=== PATIENT | male | born 1985 | race Caucasian/White ===

== ENCOUNTER 2018-03-14 11:26 | Emergency (ER) | payer BC ==
[2018-03-14 12:06] LABS: Absolute Lymphocytes (CBC) 2.8 K/uL (0.7-4.9); Absolute Monocytes 0.6 K/uL (0.1-1.3); Absolute Neutrophil 6.2 K/uL (1.8-8.0); Basophils % 1.1 % (0-1.3); Hematocrit 43.6 % (39.6-49.0); Lymphocytes % 28.5 % (15.3-44.8); MCH 28.2 pg (27.0-35.0); MCV 82.3 fL (80-100); MPV 7.2 fL (7.6-11.3); Monocytes % 5.8 % (3.3-12.3)
--- NOTE | 2018-03-14 12:15 | RAD REPORT ---
EXAM DESCRIPTION: CT - Head Brain Wo Cont - 03/14/2018 12:00 pm CLINICAL HISTORY: Left-sided numbness of the face and arm COMPARISON: None. TECHNIQUE: Axial 5 mm thick images of the head were obtained without IV contrast. All CT scans are performed using dose optimization technique as appropriate and may include automated exposure control or mA/KV adjustment according to patient size. FINDINGS: No intracranial hemorrhage, mass, edema or shift of mid-line structures. No acute infarcti on changes seen. No abnormal extra-axial fluid collections. Ventricles are normal. Mastoid air cells and visualized portions of the paranasal sinuses are clear. No acute bony findings. IMPRESSION: Negative non-contrast CT head examination. If the patient has continued, unexplained neurologic symptoms, MR imaging could be utilized for strok e assessment.
[2018-03-14 12:27] LABS: BUN Blood Urea Nitrogen 17 mg/dL (7-18); Bicarbonate 29 mmol/L (21-32); CKMB Creatine Kinase MB < 1.0 ng/mL (0.3-3.6); Creatine Phosphokinase 138 U/L (39-308); Glucose Level 92 mg/dL (74-106); Magnesium 2.2 mg/dL (1.8-2.4); Potassium 3.9 mmol/L (3.5-5.1); Sodium Level 138 mmol/L (136-145)
--- NOTE | 2018-03-14 12:49 | RAD REPORT ---
EXAM DESCRIPTION: Janeth Single View03/14/2018 12:42 pm CLINICAL HISTORY: Chest pain COMPARISON: none FINDINGS: The lungs appear clear of acute infiltrate. The heart is normal size IMPRESSION: No acute abnormalities displayed
--- NOTE | 2018-03-14 14:54 | RAD REPORT ---
EXAM DESCRIPTION: MRI - Brain Wo Cont - 03/14/2018 2:38 pm CLINICAL HISTORY: Left-sided face and arm numbness, left eye blurred vision COMPARISON: CT head same date TECHNIQUE: Sagittal T1-weighted images were obtained along with axial PD, heavily T2-weighted and T2 -FLAIR images. Axial DWI and ADC mapping sequences were also obtained along with coronal heavily T2-w eighted images. FINDINGS: No intracranial hemorrhage, mass or acute infarction. There is no edema or shift of midlin e structures. No extra-axial fluid collections. Dozier-matter/white matter junction is preserved. Signa l voids are seen as a normal finding in the major intracranial vessels. No globe or orbital content abnormality. No sella or supra sella abnormality. Mastoid air cells and paranasal sinuses are clear. IMPRESSION: Negative non-contrast MRI of the Brain.
--- NOTE | 2018-03-14 16:28 | ER ---
Nurse's Notes [facility] Name: Xavi De Luna Age: 32 yrs Sex: Male : 1985 Arrival Date: 03/14/2018 Time: 11:29 Bed 7 Private MD: Raymond De La Torre Diagnosis: Chest pain, unspecified;Paresthesia of skin Presentation: 03/14 11:33 Presenting complaint: Patient states: Numbness to left side of chest that started last aj night at 2300. Patient reports left arm and left face numbness today at 1030. Reports symptoms are resolving but numbness to left side of face persists. No facial droop noted. Patient drove himself to ER and ambulated in with steady gait. Transition of care: patient was not received from another setting of care. Onset of symptoms was March 13, 2018 at 23:00. Risk Assessment: Do you want to hurt yourself or someone else? Patient reports no desire to harm self or others. Initial Sepsis Screen: Does the patient meet any 2 criteria? No. Patient's initial sepsis screen is negative. Does the patient have a suspected source of infection? No. Patient's initial sepsis screen is negative. Care prior to arrival: None. 11:33 Method Of Arrival: Wheelchair aj 11:33 Acuity: EDU 3 aj Triage Assessment: 11:35 General: Appears in no apparent distress. comfortable, Behavior is calm, cooperative, aj appropriate for age. Pain: Denies pain. Neuro: Level of Consciousness is awake, alert, obeys commands, Oriented to person, place, time, situation, Appropriate for age. Neuro: Reports numbness in left mandaen, left zygomatic area, left cheek, left mandible, left clavicle, anterior aspect of left upper chest, left breast and left arm. Cardiovascular: Capillary refill < 3 seconds in bilateral fingers Patient's skin is warm and dry. Cardiovascular: Denies chest pain. Respiratory: Airway is patent Respiratory effort is even, unlabored, Respiratory pattern is regular, symmetrical. Derm: Skin is intact, is healthy with good turgor, Skin is pink, warm \T\ dry. normal. Historical: - Allergies: 11:35 No Known Allergies; aj - Home Meds: 11:35 atorvastatin oral oral [Active]; Allopurinol Oral [Active]; aj - PMHx: 11:35 Hyperlipidemia; Gout; aj - PSHx: 11:35 None; aj - Immunization history:: Adult Immunizations up to date. - Social history:: Smoking status: Patient/guardian denies using tobacco. - Ebola Screening: : Patient negative for fever greater than or equal to 101.5 degrees Fahrenheit, and additional compatible Ebola Virus Disease symptoms Patient denies exposure to infectious person Patient denies travel to an Ebola-affected area in the 21 days before illness onset No symptoms or risks identified at this time. - Family history:: not pertinent. - Hospitalizations: : No recent hospitalization is reported. Screenin:45 Patient has been NPO before screening. The patient is alert, able to follow commands. ss The patient exhibits slurred or garbled speech. The patient is not exhibiting difficulty speaking. The patient does not exhibit difficulty understanding words. The patient is able to swallow own secretions with no drooling or need for suction. Patient tolerated one teaspoon of water. No drooling, immediate coughing, gurgling, or clearing of the throat was noted. The patient tolerated 90mL of water. No drooling, immediate coughing, gurgling, or clearing of the throat was noted. The patient passed the bedside swallow screening. Oral medications may be given as ordered. Contact Physician for further diet orders. 11:55 Abuse screen: Denies threats or abuse. Denies injuries from another. Nutritional ss screening: No deficits noted. Tuberculosis screening: Never had TB. Fall Risk None identified. Assessment: 11:40 General: Appears in no apparent distress. comfortable, Behavior is cooperative, ss anxious, Denies fever, feeling ill, fatigue, chills. Pain: Complains of pain in chest Pain does not radiate. Pain currently is 0 out of 10 on a pain scale. at worst was 5 out of 10 on a pain scale. Pain began Pt reports he woke up in the middle of the night at 11 pm stating that he felt weird in his chest that there was pressure. Neuro:. Neuro: Level of Consciousness is awake, alert, confused, Oriented to person, place, time, situation, Compliance Advisor are equal bilaterally Moves all extremities. Full function Gait is steady, Speech is normal, Facial symmetry appears normal, Pupils are PERRLA, Intact Reports numbness in L finger tips, has improved greatly since onset of symptoms Denies dizziness, headache. Cardiovascular: Capillary refill < 3 seconds is brisk in bilateral fingers. Respiratory: Respiratory effort is even, unlabored, Respiratory pattern is regular, symmetrical. GI: No signs and/or symptoms were reported involving the gastrointestinal system. Patient currently denies diarrhea, nausea, vomiting. : No signs and/or symptoms were reported regarding the genitourinary system. EENT: Nares are clear Throat is clear. Derm: Skin is intact, is healthy with good turgor, Skin is dry. 11:55 General: Pt in CT at this time. . ss 12:22 Reassessment: Patient appears in no apparent distress at this time. No changes from tw2 previously documented assessment. Patient and/or family updated on plan of care and expected duration. Pain level reassessed. Patient is alert, oriented x 3, equal unlabored respirations, skin warm/dry/pink. 13:30 Reassessment: Patient appears in no apparent distress at this time. No changes from tw2 previously documented assessment. Patient and/or family updated on plan of care and expected duration. Pain level reassessed. Patient is alert, oriented x 3, equal unlabored respirations, skin warm/dry/pink. 14:46 Reassessment: Patient appears in no apparent distress at this time. No changes from tw2 previously documented assessment. Patient and/or family updated on plan of care and expected duration. Pain level reassessed. Patient is alert, oriented x 3, equal unlabored respirations, skin warm/dry/pink. 15:25 General: Appears in no apparent distress. comfortable, well developed, Behavior is sv calm, cooperative, appropriate for age. Pain: Denies pain. Neuro: Level of Consciousness is awake, alert, obeys commands, Oriented to person, place, time, situation, Moves all extremities. Full function Speech is normal, Denies numbness. Respiratory: Respiratory effort is even, unlabored, Respiratory pattern is regular, symmetrical. Derm: Skin is pink, warm \T\ dry. 16:03 Reassessment: Patient appears in no apparent distress at this time. No changes from tw2 previously documented assessment. Patient and/or family updated on plan of care and expected duration. Pain level reassessed. Patient is alert, oriented x 3, equal unlabored respirations, skin warm/dry/pink. 16:48 Reassessment: Patient appears in no apparent distress at this time. No changes from tw2 previously documented assessment. Patient and/or family updated on plan of care and expected duration. Pain level reassessed. Patient is alert, oriented x 3, equal unlabored respirations, skin warm/dry/pink. Vital Signs: 11:35 BP 185 / 101; Pulse 65; Resp 17; Temp 98.3; Pulse Ox 100% on R/A; Weight 117.93 kg; aj Height 6 ft. 0 in. (182.88 cm); 11:45 Resp 16; Pain 0/10; ss 12:21 BP 121 / 80; Pulse 72; Resp 16; Pulse Ox 99% on R/A; tw2 13:30 BP 133 / 89; Pulse 61; Resp 17; Pulse Ox 99% on R/A; tw2 14:46 BP 125 / 75; Pulse 66; Resp 17; Pulse Ox 99% on R/A; tw2 15:29 BP 130 / 86; Pulse 66 MON; Resp 18; Pulse Ox 99% on R/A; sv 16:03 BP 131 / 73; Pulse 63; Resp 13; Pulse Ox 100% on R/A; tw2 16:48 BP 118 / 80; Pulse 70; Resp 17; Pulse Ox 99% on R/A; tw2 11:35 Body Mass Index 35.26 (117.93 kg, 182.88 cm) aj 15:29 Sinus Rhythm sv Marcella Coma Score: 11:40 Eye Response: spontaneous(4). Verbal Response: oriented(5). Motor Response: obeys ss commands(6). Total: 15. NIH Stroke Scale Scores: 11:45 NIHSS Score: 0 ss ED Course: 11:29 Patient arrived in ED. sb2 11:30 Raymond De La Torre DO is Private Physician. sb2 11:35 Triage completed. aj 11:35 Arm band placed on left wrist. Patient placed in an exam room. aj 11:39 Sarthak Hunter MD is Attending Physician. rn 11:45 cuff setter overlock on. Pulse ox on. NIBP on. ss 11:45 Inserted saline lock: 20 gauge in right antecubital area, using aseptic technique. ss Blood collected. Patient maintains SpO2 saturation greater than 95% on room air. 11:55 Patient has correct armband on for positive identification. Bed in low position. Call ss light in reach. 11:59 CT completed. Patient tolerated procedure well. Patient moved to CT via stretcher. sj Patient moved back from CT. 12:00 CT Head Brain wo Cont In Process Unspecified. EDMS 12:05 EKG done, by industrial hygiene technician. reviewed by Sarthak Hunter MD. at1 12:20 Fern Aceves, RN is Primary Nurse. tw2 12:39 X-ray completed. Portable x-ray completed in exam room. Patient tolerated procedure ml well. 12:43 XRAY Chest (1 view) In Process Unspecified. EDMS 13:55 Patient moved to MRI via wheelchair. em2 14:38 Brain Wo Cont MRI In Process Unspecified. EDMS 15:22 Primary Nurse role handed off by Fern cAeves, RN sv 15:22 Shayla Pelayo, RN is Primary Nurse. sv 15:28 Patient taken to ultrasound. via wheelchair. sv 15:30 Awaiting radiology results. sv 15:59 Carotid Artery Bilateral US In Process Unspecified. EDMS 16:49 No provider procedures requiring assistance completed. IV discontinued, intact, tw2 bleeding controlled, No redness/swelling at site. Pressure dressing applied. Administered Medications: No medications were administered Point of Care Testing: Blood Glucose: 11:45 Blood Glucose: 87 mg/dL; ss Ranges: Outcome: 16:27 Discharge ordered by . rn 16:49 Discharged to home ambulatory, with significant other. tw2 16:49 Condition: stable 16:49 Discharge instructions given to patient, significant other, Instructed on discharge instructions, follow up and referral plans. Demonstrated understanding of instructions, follow-up care. 16:50 Patient left the ED. tw2 NIH Stroke Scale - NIH Stroke Score Date: 03/14/2018 Time: 11:45 Total Score = 0 1a. Level of Consciousness (LOC) - 0(Alert) 1b. Level of Consciousness (LOC) (Year \T\ Age) - 0(Both) 1c. LOC Commands (Open \T\ Closes Eyes/Epic Analyst) - 0(Both) 2. Best Gaze (Lateral Gaze Paresis) - 0(Normal) 3. Visual Field Loss - 0(No visual loss) 4. Facial Palsy - 0(Normal) 5a. Left Arm: Motor (10-second hold) - 0(No drift) 5b. Right Arm: Motor (10-second hold) - 0(No drift) 6a. Left Leg: Motor (5-second hold - always test supine) - 0(No drift) 6b. Right Leg: Motor (5-second hold - always test supine) - 0(No drift) 7. Limb Ataxia (finger/nose \T\ heel/vale - test with eyes open) - 0(Absent) 8. Sensory Loss (pinprick arms/legs/face) - 0(Normal) 9. Best Language: Aphasia (description/naming/reading) - 0(No aphasia) 10. Dysarthria (speech clarity - read or repeat words) - 0(Normal) 11. Extinction and Inattention (visual/tactile/auditory/spatial/personal) - 0(No abnormality) Initials: Signatures: Dispatcher [employer] Shayla Duran RN Concepcion Lobo, RN BERTRAM Decker, Francesca Schaeffer, Sarthak Angela MD MD rn Smirch, Shelby, RN RN ss Montes, Enrique em2 Concepcion guaman, architectural job captain EKG Tat1 Fern Aceves RN RN tw2 Geovanna Cantu sb2
--- NOTE | 2018-03-14 16:28 | EDPHYS ---
Physician Documentation [facility] Name: Xavi De Luna Age: 32 yrs Sex: Male : 1985 Arrival Date: 03/14/2018 Time: 11:29 Bed 7 Private MD: Yasmine De La Torreh ED Physician Sarthak Hunter HPI: 03/14 12:02 This 32 yrs old Male presents to ER via Wheelchair with complaints of Chest rn Pain, Numbness Of Arm, Numbness Of Face. 12:02 The patient or guardian reports chest pain that is located primarily in the anterior rn chest wall, left. The pain radiates to the left arm. Associated signs and symptoms: Pertinent negatives: abdominal pain, diaphoresis, dizziness, lower extremity pain, lower extremity swelling, lightheadedness, shortness of breath, syncope, vomiting. The chest pain is described as aching and tingling. Duration: The patient or guardian reports a single episode, that is still ongoing. Modifying factors: The symptoms are alleviated by nothing. the symptoms are aggravated by nothing. Severity of pain: At its worst the pain was mild in the emergency department the pain has improved. The patient has not experienced similar symptoms in the past. Reports around 11PM last night began with tingling of chest and left chest discomfort, this morning it spread to left arm and left face, currently only tingling to left hand distal to PIPs, no leg involvement, no weakness. . Historical: - Allergies: 11:35 No Known Allergies; aj - Home Meds: 11:35 atorvastatin oral oral [Active]; Allopurinol Oral [Active]; aj - PMHx: 11:35 Hyperlipidemia; Gout; aj - PSHx: 11:35 None; aj - Immunization history:: Adult Immunizations up to date. - Social history:: Smoking status: Patient/guardian denies using tobacco. - Ebola Screening: : Patient negative for fever greater than or equal to 101.5 degrees Fahrenheit, and additional compatible Ebola Virus Disease symptoms Patient denies exposure to infectious person Patient denies travel to an Ebola-affected area in the 21 days before illness onset No symptoms or risks identified at this time. - Family history:: not pertinent. - Hospitalizations: : No recent hospitalization is reported. ROS: 12:02 Constitutional: Negative for fever, chills, and weight loss, Eyes: Negative for injury, rn pain, redness, and discharge, Neck: Negative for injury, pain, and swelling, Cardiovascular: + chest pain Respiratory: Negative for shortness of breath, cough, wheezing, and pleuritic chest pain, Abdomen/GI: Negative for abdominal pain, nausea, vomiting, diarrhea, and constipation, Back: Negative for injury and pain, MS/Extremity: Negative for injury and deformity, Skin: Negative for injury, rash, and discoloration, Neuro: Negative for headache, weakness, and seizure. Exam: 12:02 Constitutional: This is a well developed, well nourished patient who is awake, alert, rn appears anxious Head/Face: Normocephalic, atraumatic. Eyes: Pupils equal round and reactive to light, extra-ocular motions intact. Lids and lashes normal. Conjunctiva and sclera are non-icteric and not injected. Cornea within normal limits. Periorbital areas with no swelling, redness, or edema. Neck: Trachea midline, no thyromegaly or masses palpated, and no cervical lymphadenopathy. Supple, full range of motion without nuchal rigidity, or vertebral point tenderness. No Meningismus. Cardiovascular: Regular rate and rhythm with a normal S1 and S2. No gallops, murmurs, or rubs. Normal PMI, no JVD. No pulse deficits. Respiratory: Lungs have equal breath sounds bilaterally, clear to auscultation and percussion. No rales, rhonchi or wheezes noted. No increased work of breathing, no retractions or nasal flaring. Abdomen/GI: Soft, non-tender, with normal bowel sounds. No distension or tympany. No guarding or rebound. No evidence of tenderness throughout. MS/ Extremity: Pulses equal, no cyanosis. Neurovascular intact. Full, normal range of motion. Equal circumference. Neuro: Awake and alert, GCS 15, oriented to person, place, time, and situation. Cranial nerves II-XII grossly intact. Motor strength 5/5 in all extremities. Cerebellar exam normal. Normal gait. + slightly decreased sensation to distal half of left hand, distal to PIP joints of middle fingers. Vital Signs: 11:35 BP 185 / 101; Pulse 65; Resp 17; Temp 98.3; Pulse Ox 100% on R/A; Weight 117.93 kg; aj Height 6 ft. 0 in. (182.88 cm); 11:45 Resp 16; Pain 0/10; ss 12:21 BP 121 / 80; Pulse 72; Resp 16; Pulse Ox 99% on R/A; tw2 13:30 BP 133 / 89; Pulse 61; Resp 17; Pulse Ox 99% on R/A; tw2 14:46 BP 125 / 75; Pulse 66; Resp 17; Pulse Ox 99% on R/A; tw2 15:29 BP 130 / 86; Pulse 66 MON; Resp 18; Pulse Ox 99% on R/A; sv 16:03 BP 131 / 73; Pulse 63; Resp 13; Pulse Ox 100% on R/A; tw2 16:48 BP 118 / 80; Pulse 70; Resp 17; Pulse Ox 99% on R/A; tw2 11:35 Body Mass Index 35.26 (117.93 kg, 182.88 cm) aj 15:29 Sinus Rhythm sv NIH Stroke Scale Scores: 11:45 NIHSS Score: 0 ss Marcella Coma Score: 11:40 Eye Response: spontaneous(4). Verbal Response: oriented(5). Motor Response: obeys ss commands(6). Total: 15. MDM: 11:39 Patient medically screened. rn 16:25 Differential diagnosis: anxiety, TIA, metabolic derangement, hyperventilation, rn neuropathy, radiculopathy. Data reviewed: vital signs, nurses notes, lab test result(s), EKG, radiologic studies, CT scan, doppler, MRI, and as a result, I will discharge patient. Counseling: I had a detailed discussion with the patient and/or guardian regarding: the historical points, exam findings, and any diagnostic results supporting the discharge/admit diagnosis, lab results, radiology results, the need for outpatient follow up, to return to the emergency department if symptoms worsen or persist or if there are any questions or concerns that arise at home. Response to treatment: the patient's symptoms have resolved after treatment, the patient's condition has returned to base line, the patient is now symptom free, and as a result, I will discharge patient. Special discussion: I discussed with the patient/guardian in detail that at this point there is no indication for admission to the hospital. It is understood, however, that if the symptoms persist or worsen the patient needs to return immediately for re-evaluation. Based on the history and exam findings, there is no indication for further emergent testing or inpatient evaluation. I discussed with the patient/guardian the need to see the lead sales consultant for further evaluation of the symptoms. I discussed with the patient/guardian the need to see the neurologist for further evaluation of the symptoms. 16:25 ED course: Recommended patient be more compliant with his cholesterol medication, f/u rn with pcp/neuro/cardiology given family hx of early cardiac problems, and daily aspirin. . 03/14 11:46 Order name: Basic Metabolic Panel; Complete Time: 12: rn 03/14 11:46 Order name: CBC with Diff; Complete Time: 12:16 rn 03/14 11:46 Order name: Ckmb; Complete Time: 12:03/14 11:46 Order name: CPK; Complete Time: 12: rn 03/14 11:46 Order name: Magnesium; Complete Time: 12:03/14 11:46 Order name: Protime (+inr); Complete Time: 12: rn 03/14 11:46 Order name: CT Head Brain wo Cont; Complete Time: 12:24 rn 03/14 11:46 Order name: Ptt, Activated; Complete Time: 12:03/14 11:46 Order name: Troponin (emerg Dept Use Only); Complete Time: 12: rn 03/14 11:46 Order name: EKG; Complete Time: 11:47 03/14 11:46 Order name: XRAY Chest (1 view); Complete Time: 14:00 03/14 11:57 Order name: Glucose, Ancillary Testing; Complete Time: 12:16 EDNJ 03/14 12:25 Order name: Brain Wo Cont MRI; Complete Time: 14:58 03/14 14:59 Order name: Carotid Artery Bilateral 03/14 11:46 Order name: Cardiac monitoring; Complete Time: :03/14 11:46 Order name: EKG - Nurse/Tech; Complete Time: :03/14 11:46 Order name: IV Saline Lock; Complete Time: :03/14 11:46 Order name: Labs collected and sent; Complete Time: 11:03/14 11:46 Order name: NPO; Complete Time: 11:03/14 11:46 Order name: O2 Per Protocol; Complete Time: :03/14 11:46 Order name: O2 Sat Monitoring; Complete Time: 11:53 rn Administered Medications: No medications were administered Point of Care Testing: Blood Glucose: 11:45 Blood Glucose: 87 mg/dL; Ranges: Critical Glucose Levels:Adult <50 mg/dl or >400 mg/dl <40 mg/dl or >180 mg/dl Disposition: 03/14/18 16:27 Discharged to Home. Impression: Chest pain, unspecified, Paresthesia of skin. - Condition is Stable. - Discharge Instructions: Nonspecific Chest Pain, Paresthesia. - Medication Reconciliation Form, Thank You Letter, Antibiotic Education, Prescription Opioid Use, Work release form form. - Follow up: Private Physician; When: As needed; Reason: Recheck today's complaints, Re-evaluation by your physician. - Problem is new. - Symptoms are resolved. NIH Stroke Scale - NIH Stroke Score Date: 03/14/2018 Time: 11:45 Total Score = 0 1a. Level of Consciousness (LOC) - 0(Alert) 1b. Level of Consciousness (LOC) (Year \T\ Age) - 0(Both) 1c. LOC Commands (Open \T\ Closes Eyes/Stem Dryer Maintainer) - 0(Both) 2. Best Gaze (Lateral Gaze Paresis) - 0(Normal) 3. Visual Field Loss - 0(No visual loss) 4. Facial Palsy - 0(Normal) 5a. Left Arm: Motor (10-second hold) - 0(No drift) 5b. Right Arm: Motor (10-second hold) - 0(No drift) 6a. Left Leg: Motor (5-second hold - always test supine) - 0(No drift) 6b. Right Leg: Motor (5-second hold - always test supine) - 0(No drift) 7. Limb Ataxia (finger/nose \T\ heel/vale - test with eyes open) - 0(Absent) 8. Sensory Loss (pinprick arms/legs/face) - 0(Normal) 9. Best Language: Aphasia (description/naming/reading) - 0(No aphasia) 10. Dysarthria (speech clarity - read or repeat words) - 0(Normal) 11. Extinction and Inattention (visual/tactile/auditory/spatial/personal) - 0(No abnormality) Initials: Signatures: Dispatcher [employer] EDMS Will, BERTRAM Javier RN, Roman, MD MD rn Wise, Tara, RN RN tw2 Corrections: (The following items were deleted from the chart) 16:50 16:27 03/14/2018 16:27 Discharged to Home. Impression: Chest pain, unspecified; tw2 Paresthesia of skin. Condition is Stable. Forms are Work release form, Medication Reconciliation Form, Thank You Letter, Antibiotic Education, Prescription Opioid Use. Follow up: Private Physician; When: As needed; Reason: Recheck today's complaints, Re-evaluation by your physician. Problem is new. Symptoms are resolved. rn
--- NOTE | 2018-03-14 16:48 | RAD REPORT ---
EXAM DESCRIPTION: GURJIT Power CP - 03/14/2018 3:59 pm CLINICAL HISTORY: Left-sided numbness, suspected CVA COMPARISON: None. TECHNIQUE: Real-time sonographic evaluation of both carotid systems was performed. Doppler interroga tion was performed with waveform tracing bilaterally. FINDINGS: Normal high resistance waveforms are noted in both external carotid arteries. The common c arotid arteries and internal carotid arteries show normal low resistance waveforms. No significant plaque formation is seen. Peak systolic and end diastolic velocity values and the ICA/ CCA ratios are in the non-hemodynamically significant range. Antegrade flow seen in both vertebral arteries. Velocity values and ratios were recorded and are retained in the patient's imaging records. IMPRESSION: No significant atherosclerotic changes noted. No evidence of a hemodynamically significant stenosis.
--- NOTE | 2018-03-14 17:58 | EKG ---
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
== END 2018-03-14 16:50 | disposition home or self-care (01) ==
LOC: ER 11:26
DX: R20.2 Paresthesia of skin (principal); E78.5 Hyperlipidemia, unspecified
CPT/HCPCS: 36415; 70450; 70551; 71045; 80048; 82550; 82553; 82962; 83735; 84484; 85025; 85610; 85730; 93005; 93880; 99285

== ENCOUNTER 2020-02-11 18:21 | Emergency (ER) | payer BC ==
--- OUTSIDE RECORDS SUMMARY | 2020-02-11 18:24 | XMS REPORT | Continuity of Care Document ---
:1985 Author Organization [facility] t Address [address] [place] [address] Care Team Providers Name Role Phone Unavailable Unavailable Unavailable Problems Condition Condition Condition Status Onset Resolution Last Treating Co mments Source Name Details Category Date Date Treatment Clinician Date Gout Gout Diagnosis Active [facility] Elevated Elevated Diagnosis Active [facility] blood blood [facility] - pressure pressure Memori a (not (not l hypertensi hypertensi Ou tpati on) on) ent Clinics Hyperlipid Hyperlipid Diagnosis Active [facility] Acute Acute Problem Active [facility] left-sided left-sided Gwen kes - low back low back Memori a pain with pain with l left-sided left-sided Ou tpati sciatica sciatica ent Clinics Adult BMI Adult BMI Diagnosis Active [facility] 36.0-36.9 36.0-36.9 Luke s - kg/sq m kg/sq m [facility] Allergic Allergic Diagnosis Active [facility] rhinitis, rhinitis, Luke s - unspecifie unspecifie Me moria d d l seasonalit seasonalit Ou tpati y, y, ent unspecifie unspecifie Cl inics d trigger d trigger Somnolence Somnolence Problem Active [facility] , daytime , daytime [facility] [place] Diagnosis Active [facility] (obstructi (obstructi Gwen kes - ve sleep ve sleep Memori a apnea) apnea) l [facility] Fatigue, Fatigue, Diagnosis Active [facility] unspecifie unspecifie Gwen kes - d type d type [facility]ics Elevated Elevated Diagnosis Active [facility] ALT ALT [facility] - measuremen measuremen Me moria t t l [facility] Hypercalce Hypercalce Diagnosis Active [facility] tu [facility] Allergies, Adverse Reactions, Alerts This patient has no known allergies or adverse reactions. Medications Ordered Filled Start Stop Current Ordering Indication Dosage Frequency Signature Comments Components Source Medication Medication Date Date Medication? Clinician (SIG) Name Name Andrey Balderas 2019-0 Yes Raymond [address] [facility] Sodium Sodium 4-11 [place] [facility] - 00:00: [facility]oria 00 l [facility] Aspir-81 Aspir-81 Yes Raymond [address] [facility] Vimovo Vimovo Yes Raymond 1 tablet [facility] [place] before [facility] - meals [facility]oria [facility] Lipitor Lipitor Yes Raymond [address] [facility] Allopurinol Allopurinol 2019- Raymond [address] [facility] 03-19 [place] once a day [facility] - 00:00 orally 30 Memoria :00 days l [facility] Procedures This patient has no known procedures. Encounters Start End Encounter Admission Attending Care Care Encounter Source Date/Time Date/Time Type Type Clinicians Facility Department ID 2019-11-07 2019-11-07 [facility] [id number] [facility] 08:15:00 08:15:00 [facility] 2019-07-11 2019-07-11 [facility] [id number] [facility] 08:00:00 08:00:00 [employer] [place] 2019-07-03 2019-07-03 [facility] [id number] [address] 16:21:00 16:21:00 t [employer] - [place] 2019-05-30 2019-05-30 [facility] [id number] 16:30:00 16:30:00 t [facility] 2018-12-26 2018-12-26 [facility] [id number] [address] 10:04:00 10:04:00 t [employer] [place] Outpat[facility] ent Clinics 2018-11-30 2018-11-30 [facility] [id number] 08:30:00 08:30:00 t [employer] [facility] Outpati ent Clinics 2018-05-26 2018-05-26 [facility] [id number] [address] 08:00:00 08:00:00 t [employer] [facility] Outpat[facility] ent Clinics 2018-03-20 2018-03-20 [facility] [id number] 09:45:00 09:45:00 t [employer] [facility] Outpat[facility] ent Clinics 2018-01-09 2018-01-09 [facility] [id number] 14:15:00 14:15:00 t [employer] [facility] Outpat[facility] ent Clinics 2017-11-07 2017-11-07 [facility] [id number] 15:45:00 15:45:00 t [employer] [facility] Outpat[facility] ent Clinics Results This patient has no known results.
[2020-02-11 22:04] LABS: Urine Blood NEGATIVE (NEG); Urine Glucose NEGATIVE (NEG); Urine Protein NEGATIVE (NEG); Urine pH 5.5 (5.0-7.0)
--- NOTE | 2020-02-11 22:30 | ER ---
Nurse's Notes [facility] Name: Xavi De Luna Age: 34 yrs Sex: Male : 1985 Arrival Date: 02/11/2020 Time: 18:23 Bed 15 Private MD: Diagnosis: Muscle spasm Presentation: 02/10 18:28 Chief complaint: Patient states: Tuesday, I pulled something on my L abdominal side and ca1 I was immediately gagging. It's been bothering me since. Every time I lift something, I feel that gagging sensation. Denies N/V/Diarrhea. Coronavirus screen: Proceed with normal triage. Patient denies a cough. Patient denies shortness of breath or difficulty breathing. Patient denies measured and/or subjective temperature greater than 100.4F prior to today's visit. Patient denies travel on a cruise ship or to a country the [facility] currently lists as an affected area. Patient denies contact with known and/or suspected case of COVID-19. Ebola Screen: Patient negative for fever greater than or equal to 101.5 degrees Fahrenheit, and additional compatible Ebola Virus Disease symptoms Patient denies exposure to infectious person. Patient denies travel to an Ebola-affected area in the 21 days before illness onset. No symptoms or risks identified at this time. Initial Sepsis Screen: Does the patient meet any 2 criteria? No. Patient's initial sepsis screen is negative. Does the patient have a suspected source of infection? No. Patient's initial sepsis screen is negative. Risk Assessment: Do you want to hurt yourself or someone else? Patient reports no desire to harm self or others. Onset of symptoms was February 11, 2020. 18:28 Method Of Arrival: Ambulatory ca1 18:28 Acuity: EDU 3 ca1 Historical: - Allergies: 18:32 No Known Allergies; ca1 - Home Meds: 18:32 Allopurinol Oral [Active]; atorvastatin Oral [Active]; ca1 - PMHx: 18:32 Gout; Hyperlipidemia; ca1 - PSHx: 18:32 None; ca1 - Immunization history:: Adult Immunizations up to date. - Social history:: Smoking status: Patient denies any tobacco usage or history of. Screenin:00 Abuse screen: Denies threats or abuse. Nutritional screening: No deficits noted. jb4 Tuberculosis screening: No symptoms or risk factors identified. Fall Risk None identified. Assessment: 19:00 General: Appears in no apparent distress. comfortable, Behavior is calm, cooperative, jb4 appropriate for age. Pain: Complains of pain in left lower quadrant Pain radiates to left low back Pain currently is 0 out of 10 on a pain scale. at worst was 6 out of 10 on a pain scale. Quality of pain is described as It just feels weird, and not right Pain began 2-3 days ago. Is continuous. Neuro: Level of Consciousness is awake, alert, obeys commands, Oriented to person, place, time, situation. Cardiovascular: Patient's skin is warm and dry. Respiratory: Airway is patent Respiratory effort is even, unlabored, Respiratory pattern is regular, symmetrical. GI: Abdomen is flat, non-distended, Bowel sounds present X 4 quads. Abd is soft and non tender X 4 quads. : No signs and/or symptoms were reported regarding the genitourinary system. EENT: No signs and/or symptoms were reported regarding the EENT system. Derm: Skin is intact, Skin is pink, warm \T\ dry. Musculoskeletal: Circulation, motion, and sensation intact. Range of motion: intact in all extremities. 20:00 Reassessment: Patient appears in no apparent distress at this time. Patient and/or jb4 family updated on plan of care and expected duration. Pain level reassessed. Patient is alert, oriented x 3, equal unlabored respirations, skin warm/dry/pink. 21:00 Reassessment: Patient appears in no apparent distress at this time. Patient and/or jb4 family updated on plan of care and expected duration. Pain level reassessed. Patient is alert, oriented x 3, equal unlabored respirations, skin warm/dry/pink. 22:00 Reassessment: Patient appears in no apparent distress at this time. Patient and/or jb4 family updated on plan of care and expected duration. Pain level reassessed. Patient is alert, oriented x 3, equal unlabored respirations, skin warm/dry/pink. 22:52 Reassessment: Patient appears in no apparent distress at this time. Patient and/or jb4 family updated on plan of care and expected duration. Pain level reassessed. Patient is alert, oriented x 3, equal unlabored respirations, skin warm/dry/pink. Pt verbalized understanding of d/c and follow up instructions. Denies questions or concerns. Ambulated out of ED with steady gait. Vital Signs: 18:28 BP 134 / 94; Pulse 71; Resp 15 S; Temp 97.4(TE); Pulse Ox 100% on R/A; Weight 120.2 kg ca1 (R); Height 6 ft. 0 in. (182.88 cm) (R); Pain 1/10; 19:45 BP 124 / 86; Pulse 74; Resp 16; Pulse Ox 98% on R/A; jb4 21:30 BP 131 / 88; Pulse 72; Resp 16; Pulse Ox 100% on R/A; jb4 22:30 BP 129 / 90; Pulse 82; Resp 16; Pulse Ox 100% on R/A; jb4 18:28 Body Mass Index 35.94 (120.20 kg, 182.88 cm) ca1 ED Course: 18:23 Patient arrived in ED. ag5 18:31 Triage completed. ca1 18:32 Arm band placed on right wrist. ca1 19:00 Patient has correct armband on for positive identification. Bed in low position. Call jb4 light in reach. Side rails up X 1. Pulse ox on. NIBP on. 19:01 Jaja Bedolla FNP-C is PHCP. snw 19:01 Kana Gastelum MD is Attending Physician. snw 20:46 Mike Osuna, RN is Primary Nurse. jb4 20:49 Jaja Bedolla FNP-C is PHCP. snw 20:49 Kana Gastelum MD is Attending Physician. snw 21:51 CT Stone Protocol In Process Unspecified. EDMS 22:54 No provider procedures requiring assistance completed. Patient did not have IV access jb4 during this emergency room visit. Administered Medications: 22:45 Drug: Bentyl 20 mg Route: PO; jb4 22:51 Follow up: Response: Medication administered at discharge. jb4 Outcome: 22:29 Discharge ordered by . snw 22:54 Discharged to home ambulatory. jb4 22:54 Condition: stable 22:54 Discharge instructions given to patient, Instructed on discharge instructions, follow up and referral plans. medication usage, Demonstrated understanding of instructions, follow-up care, medications, Prescriptions given X 1. 22:54 Patient left the ED. jb4 Signatures: Dispatcher [employer] EDMS Graeme, Jaja, SHARE HOLDER-C SHARE HOLDER-Csnw Mike Osuna, RN RN jb4 Rula Davidson, RN RN ca1 Julian Squires ag5
--- NOTE | 2020-02-11 22:30 | EDPHYS ---
Physician Documentation [facility] Name: Xavi De Luna Age: 34 yrs Sex: Male : 1985 Arrival Date: 02/11/2020 Time: 18:23 Bed 15 Private MD: ED Physician Kana Gastelum HPI: 02/10 21:40 This 34 yrs old Male presents to ER via Ambulatory with complaints of snw Abdominal Injury. 21:41 The patient presents with abdominal pain. Onset: The symptoms/episode began/occurred snw acutely. The symptoms do not radiate. Associated signs and symptoms: none. The symptoms are described as popping and makes pt gag. Modifying factors: The symptoms are alleviated by remaining still, the symptoms are aggravated by bending over. Severity of pain: At its worst the pain was mild moderate. The patient has not experienced similar symptoms in the past. It is unknown whether or not the patient has recently seen a physician. Historical: - Allergies: 18:32 No Known Allergies; ca1 - Home Meds: 18:32 Allopurinol Oral [Active]; atorvastatin Oral [Active]; ca1 - PMHx: 18:32 Gout; Hyperlipidemia; ca1 - PSHx: 18:32 None; ca1 - Immunization history:: Adult Immunizations up to date. - Social history:: Smoking status: Patient denies any tobacco usage or history of. ROS: 21:40 Constitutional: Negative for fever, chills, and weight loss, Eyes: Negative for injury, snw pain, redness, and discharge, ENT: Negative for injury, pain, and discharge, Neck: Negative for injury, pain, and swelling, Cardiovascular: Negative for chest pain, palpitations, and edema, Respiratory: Negative for shortness of breath, cough, wheezing, and pleuritic chest pain, Back: Negative for injury and pain, : Negative for injury, bleeding, discharge, and swelling, MS/Extremity: Negative for injury and deformity, Skin: Negative for injury, rash, and discoloration, Neuro: Negative for headache, weakness, numbness, tingling, and seizure, Psych: Negative for depression, anxiety, suicide ideation, homicidal ideation, and hallucinations. 21:40 Abdomen/GI: Positive for abdominal pain, of the left lower quadrant. Exam: 21:39 Constitutional: This is a well developed, well nourished patient who is awake, alert, snw and in no acute distress. Head/Face: Normocephalic, atraumatic. Eyes: Pupils equal round and reactive to light, extra-ocular motions intact. Lids and lashes normal. Conjunctiva and sclera are non-icteric and not injected. Cornea within normal limits. Periorbital areas with no swelling, redness, or edema. ENT: Nares patent. No nasal discharge, no septal abnormalities noted. Tympanic membranes are normal and external auditory canals are clear. Oropharynx with no redness, swelling, or masses, exudates, or evidence of obstruction, uvula midline. Mucous membranes moist. Neck: Trachea midline, no thyromegaly or masses palpated, and no cervical lymphadenopathy. Supple, full range of motion without nuchal rigidity, or vertebral point tenderness. No Meningismus. Chest/axilla: Normal chest wall appearance and motion. Nontender with no deformity. No lesions are appreciated. Cardiovascular: Regular rate and rhythm with a normal S1 and S2. No gallops, murmurs, or rubs. Normal PMI, no JVD. No pulse deficits. Respiratory: Lungs have equal breath sounds bilaterally, clear to auscultation and percussion. No rales, rhonchi or wheezes noted. No increased work of breathing, no retractions or nasal flaring. Back: No spinal tenderness. No costovertebral tenderness. Full range of motion. Skin: Warm, dry with normal turgor. Normal color with no rashes, no lesions, and no evidence of cellulitis. MS/ Extremity: Pulses equal, no cyanosis. Neurovascular intact. Full, normal range of motion. Neuro: Awake and alert, GCS 15, oriented to person, place, time, and situation. Cranial nerves II-XII grossly intact. Motor strength 5/5 in all extremities. Sensory grossly intact. Cerebellar exam normal. Normal gait. Psych: Awake, alert, with orientation to person, place and time. Behavior, mood, and affect are within normal limits. 21:39 Abdomen/GI: Inspection: abdomen appears normal, Bowel sounds: normal, in all quadrants, Palpation: mild abdominal tenderness, in the right lower quadrant and left lower quadrant. Vital Signs: 18:28 BP 134 / 94; Pulse 71; Resp 15 S; Temp 97.4(TE); Pulse Ox 100% on R/A; Weight 120.2 kg ca1 (R); Height 6 ft. 0 in. (182.88 cm) (R); Pain 1/10; 19:45 BP 124 / 86; Pulse 74; Resp 16; Pulse Ox 98% on R/A; jb4 21:30 BP 131 / 88; Pulse 72; Resp 16; Pulse Ox 100% on R/A; jb4 22:30 BP 129 / 90; Pulse 82; Resp 16; Pulse Ox 100% on R/A; jb4 18:28 Body Mass Index 35.94 (120.20 kg, 182.88 cm) ca1 MDM: 19:01 Patient medically screened. snw 22:30 Data reviewed: vital signs, nurses notes. Data interpreted: Pulse oximetry: on room air snw is 98 %. Interpretation: normal. Counseling: I had a detailed discussion with the patient and/or guardian regarding: the historical points, exam findings, and any diagnostic results supporting the discharge/admit diagnosis, the presence of at least one elevated blood pressure reading (>120/80) during this emergency department visit, radiology results, the need for outpatient follow up, to return to the emergency department if symptoms worsen or persist or if there are any questions or concerns that arise at home. Response to treatment: There is no appreciated change of the patient's symptoms at this time. Special discussion: I have referred the patient to see his PCP for further evaluation of high blood pressure. Based on the history and exam findings, there is no indication for further emergent testing or inpatient evaluation. I discussed with the patient/guardian the need to see the primary care provider for further evaluation of the symptoms. 02/10 21:39 Order name: Urine Dipstick--Ancillary (enter results); Complete Time: 22:28 sg 02/10 21:01 Order name: CT Stone Protocol snw 02/10 21:01 Order name: Urine Dipstick-Ancillary (obtain specimen); Complete Time: 21:32 snw Administered Medications: 22:45 Drug: Bentyl 20 mg Route: PO; jb4 22:51 Follow up: Response: Medication administered at discharge. jb4 Disposition: 02/11 06:40 Co-signature as Attending Physician, Kana Gastelum MD. [email or web address] Disposition: 02/11/20 22:29 Discharged to Home. Impression: Muscle spasm. - Condition is Stable. - Discharge Instructions: Hypertension, Muscle Cramps and Spasms, Muscle Strain, Form - Blood Pressure Record Sheet. - Prescriptions for orphenadrine citrate 100 mg Oral Tablet Sustained Release - take 1 tablet by ORAL route 2 times per day As needed; 20 tablet. - Work release form, Medication Reconciliation Form, Thank You Letter, Antibiotic Education, Prescription Opioid Use form. - Follow up: Private Physician; When: 2 - 3 days; Reason: Recheck today's complaints, Continuance of care, Re-evaluation by your physician. Follow up: Emergency Department; When: As needed; Reason: Worsening of condition. Signatures: Dispatcher [employer] EDMS Jaja Bedolla, ACCOUNT TECHNICIAN-C ACCOUNT TECHNICIAN-Csnw Mike Osuna RN RN jb4 Rula Davidson RN RN ca1 Holmes, Maurice, MD MD [email or web address] Corrections: (The following items were deleted from the chart) 02/10 22:54 22:29 02/11/2020 22:29 Discharged to Home. Impression: Muscle spasm. Condition is jb4 Stable. Forms are Medication Reconciliation Form, Thank You Letter, Antibiotic Education, Prescription Opioid Use. Follow up: Private Physician; When: 2 - 3 days; Reason: Recheck today's complaints, Continuance of care, Re-evaluation by your physician. Follow up: Emergency Department; When: As needed; Reason: Worsening of condition. snw
[2020-02-11] MEDS ORDERED: DICYCLOMINE HCL 10 MG CAP ONE (22:54)
[2020-02-11 23:28] VITALS: TEMP 97.4
[2020-02-11 23:31] VITALS: O2SAT 100
[2020-02-11 23:32] VITALS: BP 129/90
--- NOTE | 2020-02-13 10:57 | RAD REPORT ---
EXAM DESCRIPTION: CT - Stone Protocol - 02/12/2020 1:49 am CLINICAL HISTORY: The patient is 34 years old and is Male; LLQ;Abd pain TECHNIQUE: Axial computed tomography images of the abdomen and pelvis without intravenous contrast. Sagittal and coronal reformatted images were created and reviewed. This CT exam was performed usi ng one or more of the following dose reduction techniques: automated exposure control, adjustment o f the mA and/or kV according to patient size, and/or use of iterative reconstruction technique. COMPARISON: No relevant prior studies available. FINDINGS: Lung bases: Unremarkable. No mass. No consolidation. ABDOMEN: Liver: Unremarkable. Gallbladder and bile ducts: Unremarkable. No calcified stones. No ductal dilation. Pancreas: Unremarkable. No ductal dilation. Spleen: Unremarkable. No splenomegaly. Adrenals: Unremarkable. No mass. Kidneys and ureters: No nephrolithiasis. No hydronephrosis. Stomach and bowel: Unremarkable. No obstruction. No mucosal thickening. PELVIS: Appendix: No findings to suggest acute appendicitis. Bladder: Unremarkable. No stones. Reproductive: Unremarkable as visualized. ABDOMEN and PELVIS: Intraperitoneal space: Unremarkable. No free air. No significant fluid collection. Bones/joints: No acute fracture. No dislocation. Soft tissues: Unremarkable. Vasculature: Unremarkable. No abdominal aortic aneurysm. Lymph nodes: Unremarkable. No enlarged lymph nodes. IMPRESSION: No acute intra-abdominal abnormality. Electronically signed by: Kolby Newsome MD 02/11/2020 10:09 PM CDT Due to temporary technical issues with the PACS/Fluency reporting system, reports are being signed by the in house radiologist without review as a courtesy to ensure prompt reporting. The interpreting r adiologist is fully responsible for the content of the report.
== END 2020-02-11 22:54 | disposition home or self-care (01) ==
LOC: ER 18:21
DX: M62.838 Other muscle spasm (principal); E78.5 Hyperlipidemia, unspecified; M10.9 Gout, unspecified
CPT/HCPCS: 74176; 76377; 81003; 99284